=== PATIENT | female | born 1975 | race Caucasian/White ===

== ENCOUNTER 2017-11-12 23:45 | Emergency (ER) | payer SELFPAY ==
[~2017-11-12] VITALS: Ht 157.5 cm; Wt 92.6 kg
[2017-11-12 23:55] VITALS: BP 129/78
--- NOTE | 2017-11-13 00:52 | NUR ---
PATIENT LEFT WITHOUT BEING SEEN BY DR. QUINTANA. NO FURTHER CARE PROVIDED FOR PATIENT.
[2017-11-13 00:53] VITALS: BP 129/78
== END 2017-11-13 00:52 | disposition left against medical advice (07) ==
LOC: MED 23:45
DX: R10.9 Unspecified abdominal pain (principal); Z53.21 Procedure and treatment not carried out due to patient leaving prior to being seen by health care provider
CPT/HCPCS: 81025